=== PATIENT | female | born 1980 | race Caucasian/White ===

== ENCOUNTER → 2023-03-21 | Outpatient (CLI) | payer OTHER, SELFPAY ==
--- OUTSIDE RECORDS SUMMARY | 2023-03-21 11:46 | XMS RPT_ITS | CCD ---
Author Name Unknown Address [address] [place] [address] Organization [facility] Care Team Providers Care Safe And Vault Service Mechanic Name Role Phone Diana Mcdonald APRN.CNP Primary Care Provider Case LORENZO, Mary Underwood Unavailable Santos AREVALO, Kemar Eduardo Unavailable Zenobia Hernández LPN Unavailable Unavailable Unavailable Unavailable Allergies Allergy Classification Reported Allergen(s) Allergy Type Date of Onset Reaction(s) Facility (6 sources) Adhesive agent Drug Allergy 02-02-2010 Rash [facility] Work Phone: (6 sources) buPROPion Drug Allergy 05-23-2006 Hives [facility] Work Phone: (6 sources) CONTACT [Other] Propensity to adverse reactions 11-19-2004 [facility] Medications Current Medications Medication Drug Class(es) Dates Sig (Normalized) Sig (Original) FLUoxetine 40 mg oral capsule (2 sources) Serotonin Reuptake Inhibitor Start: 03-14-2023 FLUoxetine 40 mg capsule ; 1 Capsule daily for 90 days Quantity: 90 {Capsule} Refills: 0 Ordered: 14-Mar-2023 BJ Willoughby Start: 14-Mar-2023 Completed/Discontinued Medications Medication Drug Class(es) Dates Sig (Normalized) Sig (Original) drospirenone / Ethinyl Estradiol (9 sources) Progestin, Estrogen Start: 11-29-2022 Drospirenone-Ethin yl Estradiol (LORYNA, 28,) 3-0.02 mg per tablet Take 1 tablet daily, do not take inactive week. Begin new pack every 3 weeks. 114 tablet 0 11/29/2022 Active Problems Active Problems Problem Classification Problem Date Documented Da te Episodic/Chronic Allergic reactions (2 sources) Contact dermatitis; Translations: [Unspecified contact dermatitis, unspecified cause] 10-05-2021 Episodic Anxiety disorders (10 sources) Anxiety state; Translations: [Generalized anxiety disorder] Onset: 11-19-2004 09-22-2008 Chronic Other screening for suspected conditions (not mental disorders or infectious disease) (3 sources) Patient encounter status; Translations: [Encounter for screening mammogram for malignant neoplasm of breast] Episodic Unclassified (1 source) deliveries 02-01-2021 Past or Other Problems Problem Classification Problem Date Documented Date Episodic/Chronic Residual codes; unclassified (6 sources) Family history of diabetes mellitus; Translations: [Family history of diabetes mellitus] Onset: 09-22-2008 09-22-2008 Episodic Residual codes; unclassified (6 sources) FH: Skin disease; Translations: [Family history of diseases of the skin and subcutaneous tissue] Onset: 09-22-2008 09-22-2008 Episodic Unclassified (1 source) Rash - The onset of the rash has been acute and has been occurring in a persistent pattern for 4 days. The course has been increasing. The rash is characterized as red, weeping, pustular and raised above the skin. The rash was first seen on exposed areas (left arm). It spread to the neck, the back, the upper extremity, the lower extremity and exposed areas. There has been associated itching, pain, drainage, erythema and edema. There has been associated itching, while there has been no chills, fatigue, fever or weight loss. Note for Rash : Started after patient was helping with yard work. She reports that she usually avoids working in the yard as she gets very bad reactions to poison chris. 10-05-2021 Results Test Name Value Interpretation Reference Range Facil ity Vital Signs Date Time Vital Sign Value Performing Clinician Shirley martinez 10-05-2021 13:36-0400 Body height 165.1 cm Zenobia Hernández LPN [employer] [facility], [employer] [facility], [employer]. 10-05-2021 13:36-0400 Body mass index (BMI) [Ratio] 26.79 kg/m2 Zenobia Hernández LPN [employer] [facility], [facility].; [employer] [facility], [facility]. 10-05-2021 13:36-0400 Body surface area Derived from formula 1.8 m2 Zenobia Hernández LPN [facility].; [facility]. 10-05-2021 13:36-0400 Body weight 73.03 kg Zenobia Hernández LPN [facility].; [employer] [facility]. 10-05-2021 13:36-0400 Diastolic blood pressure 77 mm[Hg] Zenobia Hernández LPN [facility].; [employer] [facility] Encounters Encounter Date Encounter Type Care Provider Facility Start: 11-29-2022 ambulatory Diana Mcdonald APRN.CNP Work Phone: Internal Medicine [facility] Start: 11-28-2022 Refill Alicja Loredo MD Work Phone: OB/Gynecology Procedures Date Procedure Procedure Detail Performing Clinician Start: 10-14-2021 CHRISTA SCREENING W JALEN Garcia MD Work Phone: Start: 10-14-2021 Mammography Screen Wst r Start: 12-21-2020 Adult depression scr eening assessment Alicja Loredo MD Work Phone: Start: 09-23-2020 Mammography Alicja Loredo MD Work Phone: Start: 03-12-2010 End: 03-12-2010 Section - 2 Mary Willoughby PA-C Work Phone: Plan of Treatment Date Care Activity Detail Author Start: 09-14-2025 HPV TESTING HPV TESTING [facility] Start: 09-14-2025 PAP TESTING PAP TESTING [facility] Start: 03-16-2023 Medical; RTN OFFICE VISIT - rtn med refill Medical; RTN OFFICE VISIT - rtn med refill [facility] Start: 16-Mar-2023 15:00 BJ Willoughby Appointment Request Raymond [employer] [facility] Start: 11-10-2022 Influenza [facility] Start: 10-14-2022 Mammography [facility] Start: 03-12-2022 Depression Assessment Depression Assessment [facility] Start: 12-21-2021 Adult depression screening assessment DEPRESSION SCREENING [facility] Start: 11-10-2021 Influenza vaccination INFLUENZA (#1) [facility] Start: 09-23-2021 Mammography MAMMOGRAM [facility] Start: 04-07-2021 Urine microalbumin profile [facility] Start: 01-17-1996 HEPATITIS C SCREENING HEPATITIS C SCREENING [facility] Start: 01-17-1996 HIV SCREENING HIV SCREENING [facility] Start: 1980 COVID-19 VACCINE (#1) COVID-19 VACCINE (#1) [facility] Start: 1980 HEPATITIS B (1 of 3 - 3-dose series) HEPATITIS B (1 of 3 - 3-dose series) [facility] Start: 1980 Hepatitis B Vaccine (1 of 3 - 3-dose series) Hepatitis B Vaccine (1 of 3 - 3-dose series) [facility] End: 10-15-2022 CHRISTA SCREENING W JALEN CHRISTA SCREENING W JALEN Radiology Routine Encounter for screening mammogram for breast cancer 1 Occurrences starting 09/15/2021 until 10/15/2022 [facility] Work Phone: Immunizations Immunization Date Immunization Notes Care Provider Nik dickey 09-18-2013 measles, mumps and rubella virus vaccine Alicja Loredo MD Work Phone: [facility] Work Phone: 11-08-2011 hepatitis B vaccine, pediatric or pediatric/adolescent dosage Ailcja Loredo MD Work Phone: [facility] Work Phone: 11-08-2011 hepatitis B vaccine, unspecified formulation Mammography Coordinator [facility] 05-10-2011 hepatitis B vaccine, pediatric or pediatric/adolescent dosage Alicja Loredo MD Work Phone: [facility] Work Phone: 04-07-2011 hepatitis B vaccine, pediatric or pediatric/adolescent dosage Alicja Loredo MD Work Phone: [facility] Work Phone: 04-07-2011 meningococcal polysaccharide vaccine (MPSV4) Alicja Loredo MD Work Phone: [facility] Work Phone: 04-07-2011 tetanus toxoid, redu delia diphtheria toxoid, and acellular pertussis vaccine, adsorbed Alicja Loredo MD Work Phone: [facility] Work Phone: 04-10-1986 DTP-Haemophilus influenzae type b conjugate vaccine Alicja Loredo MD Work Phone: [facility] Work Phone: 10-11-1983 DTP-Haemophilus influenzae type b conjugate vaccine Alicja Loredo MD Work Phone: [facility] Work Phone: 10-11-1983 poliovirus vaccine, inactivated Alicja Loredo MD Work Phone: [facility] Work Phone: 04-10-1980 poliovirus vaccine, inactivated Alicja Loredo MD Work Phone: [facility] Work Phone: 10-07-1979 measles, mumps and rubella virus vaccine Alicja Loredo MD Work Phone: [facility] Work Phone: 1980 DTP-Haemophilus influenzae type b conjugate vaccine Alicja Loredo MD Work Phone: [facility] Work Phone: 1980 poliovirus vaccine, inactivated Alicja Loredo MD Work Phone: [facility] Work Phone: 1978 DTP-Haemophilus influenzae type b conjugate vaccine Alicja Loredo MD Work Phone: [facility] Work Phone: 1978 poliovirus vaccine, inactivated Alicja Loredo MD Work Phone: [facility] Work Phone: 1980 DTP-Haemophilus influenzae type b conjugate vaccine Alicja Loredo MD Work Phone: [facility] Work Phone: Payers Date Payer Category Payer Unknown MMO MMO [employer] [id number] 2020-Present [phone] [address] [place] [address] PPO [id number] 2020 Unknown 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 Start: 09-14-2020 End: 09-15-2021 Tobacco use panel [facility] National Score (1-100), lower number is lower risk Not on file [facility] Female [facility] [employer] Work Phone: Tobacco smoking consumption unknown [employer] Work Phone: Clinical Notes 09-15-2010 to 11-29-2022 Telephone Encounter - Tova White CHRISTINE - 11/28/2022 10:49 AM Johnathon - Mammography Coordinator - 10/14/2021 10:41 AM RT Josie(Davi) - 10/14/2021 8:30 AM EDT Note Date & Type Note Facility 11-29-2022 Note Patient Outreach (IN [facility]) RORY DRISCOLL ([id number]) 1980 F Date Time Provider Department 11/29/22 DIANA MCDONALD During your visit today, we recorded the following information about you: Allergies As of Date: 11/29/2022 Noted Allergy Reaction ADHESIVE 02/02/2010 2 - Rash Comments: TAPE BURN AFTER C SECTION CONTACT [Other] 11/19/2004 Comments: dizziness and fainting-states is an OTC flu pill WELLBUTRIN (BUPROPION HCL) 05/23/2006 4 - Hives Date Reviewed: 09/15/2021 Reviewed by: Janki Almeida MA - Fully Assessed Visit Diagnosis:Encounter for screening mammogram for breast cancer [Z12.31] Order(s):[facility] SCREENING W JALEN [[id number]] Order #: [id number] FUTURE Prescriptions as of 12/04/2022 - Drospirenone-Ethinyl Estradiol (LORYNA, 28,) 3-0.02 mg per tablet Take 1 tablet daily, do not take inactive week. Begin new pack every 3 weeks. - ergocalciferol 50,000 unit capsule (VITAMIN D2, DRISDOL) Take 1 capsule by mouth one time a week. Meds Comments as of 02/14/2008: All medications have been reviewed today/May 30, 2007/Haylee Suarez Cma Ca All medications reviewed today/February 14, 2008 Yue Reyes Rn Problem List As Of Date 11/29/2022 Noted Resolved ANXIETY STATE NOS [F41.1] 11/19/2004 IRRITABLE COLON [K58.9] 11/19/2004 09/22/2008 Supervision of Other Normal [Z34.80] 03/26/2008 11/13/2008 FAMILY HX DIABETES MELLITUS [Z83.3] 09/22/2008 FAMILY HX SKIN CONDITION [Z84.0] 09/22/2008 Routine General Medical Examination at [facility]*09/22/2008 11/13/2008 Class: Chronic Routine Gynecological Examination [Z01.419] 09/22/2008 11/13/2008 Class: Chronic Supervision of other normal [Z34.80] 09/15/2010 11/07/2010 Previous delivery, antepartum conditio*09/15/2010 11/07/2010 Encounter Status:Closed by JEANNE JUAREZ on 12/04/22 [facility] 11-28-2022 Miscellaneous Notes Pt called the office and stated that her insurance has changed and we are no longer covered under her new plan and she is having to switch to a new provider. Pt is not able to get into the new provider for a about a month and does not want to run out of her control. She is wanting to know if you would be willing to call in refills to last until she can be seen in the office. Pt wanted you to know that she is very upset that she has to leave the practice. Please advise on pended order below. Tova White LPN documented in this encounter [facility] 10-14-2021 Miscellaneous Notes October 14, 2021 PID: [id number] Rory Driscoll [address] [place] [address] Dear Ms. Driscoll, We are pleased to inform you that the results of your recent breast imaging exam on 10/14/2021 are normal. Your mammogram demonstrates that you have dense breast tissue, which could hide abnormalities. Dense breast tissue, in and of itself, is a relatively common condition. Therefore, this information is not provided to cause undue concern; rather, it is to raise your awareness and promote discussion with your health care provider regarding the presence of dense breast tissue in addition to other risk factors. Early detection of cancer is very important. We also understand recommendations regarding breast cancer screening are controversial. Please discuss with your primary care provider which strategy is best for you and whether a mammogram is right for you. Your imaging studies and report will be kept on file at [facility] as part of your permanent medical record and are available for your continuing care. Thank you for allowing us to help in meeting your health care needs. Sincerely, Dr. Wiggins Interpreting Radiologist [facility] (Normal over 40) documented in this encounter [facility] 10-14-2021 History of Presen t illness Narrative Radiology Service Progress Note PATIENT NAME: Rory Driscoll DATE OF SERVICE: October 14, 2021 TIME: 8:23 AM PATIENT IDENTITY VERIFICATION COMPLETED USING TWO (2) IDENTIFIERS: Name and Date of confirmed by patient verbally. FALL SCREENING: Has the patient had 2 falls in the last year or 1 fall with injury or currently using an Ambulatory Assistive Device (Walker, Cane, Wheelchair, Crutches, etc.)? No PATIENT GENDER DATA: Female. status: : No status: NO. PATIENT RELEVANT IMPLANT DATA REVIEWED: Not Applicable RADIOLOGY DEPARTMENT: Mammography PERIPHERAL IV DATA: Not applicable SIGNED BY: RT Schuyler(R) October 14, 2021 8:23 AM documented in this encounter [facility] 09-16-2021 Miscellaneous Notes Patient notified. Lana Harman RN Left message for patient to call office. Jaqueline Nam RN ----- Message from Alicja Loredo MD sent at 09/16/2021 9:55 AM EDT ----- Notify patient that Vit D level is normal range. I do not recommend the 50,000iu/day. Would recommend just OTC 1000 international unit(s)/day or every other day. documented in this encounter [facility] 09-15-2021 History of Presen t illness Narrative Rory is a 41 year old who presents for an annual gynecologic exam without complaints. seperated from - very happy. Has three children and expecting first grandchild this year. Youngest is 11. very happy with OCPs Menses: no menses - continuous OCPs. Contraception: combined hormonal contraceptives HPV vaccine: No Last Pap: 09/17/2020 normal HPV: 09/16/2020 negative History of abnormal pap: No Last mammogram: 2020normal Sexually active: Not currently History of STDS: None Patient concerns for STD exposure: No. Exercise: active Diet: balanced OB History T3 L3 SAB0 IAB0 Ectopic0 Multiple0 Live Births3 Athletics Director History LMP: 08/29/2020, Having periods Age at Menarche: Age at First : Age at Menopause: Athletics Director History Comments: Sexual Activity: Yes; Male Contraception: Vasectomy PAST MEDICAL HISTORY Diagnosis Date Generalized anxiety disorder Anxiety, Generalized/DEPRESSION Headache(784.0) PAST SURGICAL HISTORY Procedure Laterality Date DELIVERY ONLY 10/01/2008 , low transverse TONSILLECTOMY PRIMARY/SECONDARY <AGE 12 Tonsillectomy FAMILY HISTORY Problem Relation Age of Onset Arthritis Mother Cancer Mother SKIN CANCER (basal cell) Hypertension Father Cancer Father SKIN CANCER Diabetes Father Anxiety disorder Father Anxiety disorder Sister Cancer Sister SKIN CANCER Anxiety disorder Sister Cancer Brother SKIN CANCER other (PARKINSONS DISEASE) Maternal Grandmother Diabetes Maternal Grandfather Stroke Paternal Grandmother Coronary Artery Disease Paternal Grandfather Ischemic Heart Disease Paternal Grandfather age 60's No Known Problems Daughter No Known Problems Daughter No Known Problems Daughter Colon Cancer Other Breast Cancer Other SOCIAL HISTORY Social History Tobacco Use Smoking status: Never Smoker Smokeless tobacco: Never Used Vaping Use Vaping Use: Never used Substance Use Topics Alcohol use: No Drug use: No REVIEW OF SYSTEMS Abdomen: No abdominal pain, nausea, vomiting, diarrhea, or constipation. No bloating, early satiety, indigestion, or increased flatulence. Bladder: No dysuria, gross hematuria, urinary frequency, urinary urgency, or incontinence. Breast: No breast lumps, nipple d/c, overlying skin changes, redness or skin retraction. Allergies and current medication updated:Yes EXAM: BP 110/78 Wt 160 lb (72.6kg) LMP 08/29/2020 GENERAL: pleasant, female in no apparent distress HEENT: Normocephalic, atraumatic, mucus membranes moist and no lesions NECK: Supple, full range of motion, no adenopathy and thyroid normal DERMATOLOGY: Normal, without lesions, non-icteric and non-hirsute BREAST: soft, non-tender, symmetric, no dominant mass, normal nipple-areolar complex, no lymphadenopathy and no nipple discharge ABDOMEN: soft, non-tender and no masses PELVIC: external genitalia normal, normal Bartholin's glands, urethra, Nemaha's glands, no vulvar lesions, no cervical lesions, good vaginal support, physiologic discharge present, normal appearing perineal body and perianal region BIMANUAL: uterus 12 Week size, shape and consistency, no adnexal masses and non-tender RECTOVAGINAL: deferred. NEURO: alert and oriented x3,exam grossly non-focal EXTREMITIES: normal ASSESSMENT/PLAN: 1) Health maintenance: Pap/HPV up to date. Mammogram ordered. Vit D level today Nutrition, exercise and routine health maintenance exams reviewed. Calcium/Vitamin D supplementation information provided. 2) Contraception: combined hormonal contraceptives. Contraceptive options reviewed and information provided. 3) STD screening: Declined STD check. 4) Follow up one year or sooner as needed Alicja Christiansen MD documented in this encounter [facility] documented as of this encounter (statuses as of 09/15/2021) [facility] History of Past illness Narrative* Problem Noted Date Resolved Date Supervision of other normal 09/15/2010 11/07/2010 Previous delivery, antepartum condition or complication 09/15/2010 11/07/2010 Routine general medical exam ination at a health care facility 09/22/2008 11/13/2008 Overview: 09/22/2008, vaibhav care, from Dr. Garcia Routine gynecological examination 09/22/2008 11/13/2008 Overview: Dr. Brannon Supervision of other normal 03/26/2008 11/13/2008 Irritable bowel syndrome 11/19/2004 009 documented as of this encounter (statuses as of 09/16/2021) [facility] History of Past illness Narrative* Problem Noted Date Resolved Date Supervision of other normal 09/15/2010 11/07/2010 Previous delivery, antepartum condition or complication 09/15/2010 11/07/2010 Routine general medical exam ination at a health care facility 09/22/2008 11/13/2008 Overview: 09/22/2008vaibhav care, from Dr. Garcia Routine gynecological examination 09/22/2008 11/13/2008 Overview: Dr. Brannon Supervision of other normal 03/26/2008 11/13/2008 Irritable bowel syndrome 11/19/2004 009 documented as of this encounter (statuses as of 10/15/2021) [facility] History of Past illness Narrative* Problem Noted Date Resolved Date Supervision of other normal 09/15/2010 11/07/2010 Previous delivery, antepartum condition or complication 09/15/2010 11/07/2010 Routine general medical exam ination at a health care facility 09/22/2008 11/13/2008 Overview: 09/22/2008, vaibhav care, from Dr. Garcia Routine gynecological examination 09/22/2008 11/13/2008 Overview: Dr. Brannon Supervision of other normal 03/26/2008 11/13/2008 Irritable bowel syndrome 11/19/2004 009 documented as of this encounter (statuses as of 10/18/2021) [facility] History of Past illness Narrative* Problem Noted Date Diagnosed Date Resolved Date Supervision of other normal 09/15/2010 11/07/2010 Previous delivery, antepartum condition or complication 09/15/2010 11/07/2010 Routine general medical exam ination at a health care facility 09/22/2008 11/13/2008 Overview: 09/22/2008vaibhav care, from Dr. Garcia Routine gynecological examination 09/22/2008 11/13/2008 Overview: Dr. Brannon Supervision of other normal 03/26/2008 11/13/2008 Irritable bowel syndrome 11/19/2004 documented as of this encounter (statuses as of 11/29/2022) [facility] History of Past illness Narrative* Problem Noted Date Diagnosed Date Resolved Date Supervision of other normal 09/15/2010 11/07/2010 Previous delivery, antepartum condition or complication 09/15/2010 11/07/2010 Routine general medical exam ination at a health care facility 09/22/2008 11/13/2008 Overview: 09/22/2008, vaibhav care, from Dr. Garcia Routine gynecological examination 09/22/2008 11/13/2008 Overview: Dr. Brannon Supervision of other normal 03/26/2008 11/13/2008 Irritable bowel syndrome 11/19/2004 documented as of this encounter (statuses as of 12/04/2022) [facility] note* Diagnosis Encounter for gynecological examination (general) (routine) without abnormal findings- Primary Encounter for screening mammogram for breast cancer [facility] Diagnosis Encounter for screening mammogram for breast cancer [facility] Diagnosis Encounter for screening mammogram for breast cancer documented in this encounter [facility] for referral (narrative)* Diagnostic Procedure Only (Routine) - Pending Review Specialty Diagnoses / Procedures Referred By Rob t Referred To Contact [facility] Diagnoses Encounter for screening mammogram for breast cancer Procedures CHRISTA SCREENING W JALEN SCREENING DIGITAL BREAST TOMOSYNTHESIS BI SCREENING MAMMOGRAPHY BI 2-VIEW BREAST INC Alicja Andujar MD [address] [place] [address] [facility] [address] [place] [address] Referral ID Status Reason Start Date Expiration Date Visits Requested Visits Authorized [id number] Pending Review Auto-Generat ed Referral 09/15/2021 10/15/2022 1 1 T [facility] for referral (narrative)* Diagnostic Procedure Only (Routine) - Closed Specialty Diagnoses / Procedures Referred By Contac t Referred To Contact [facility] Diagnoses Encounter for screening mammogram for breast cancer Procedures CHRISTA SCREENING W JALEN SCREENING DIGITAL BREAST TOMOSYNTHESIS BI SCREENING MAMMOGRAPHY BI 2-VIEW BREAST INC CAD Alicja Mcbride MD [address] [place] [address] [facility] [address] [place] [address] Referral ID Status Reason Start Date Expiration Date V isits Requested Visits Authorized [id number] Closed Auto-Generate d Referral 09/15/2021 10/15/2022 1 1 [facility] for visit Narrative* Diagnostic Procedure Only (Routine) - Closed Specialty Diagnoses / Procedures Referred By Rob t Referred To Contact [facility] Diagnoses Encounter for screening mammogram for breast cancer Procedures CHRISTA SCREENING W JALEN SCREENING DIGITAL BREAST TOMOSYNTHESIS BI SCREENING MAMMOGRAPHY BI 2-VIEW BREAST INC CAD Alicja Mcbride MD [address] [place] [address] [facility] Imaging [address] [place] [address] Referral ID Status Reason Start Date Expiration Date V isits Requested Visits Authorized [id number] Closed Auto-Generate d Referral 09/15/2021 10/15/2022 1 1 [facility] Reason for Referral Specialty Diagnoses / Procedures Referred By Contfranky t Referred To Contact [facility] Diagnoses Encounter for screening mammogram for breast cancer Procedures CHRISTA SCREENING W JALEN SCREENING DIGITAL BREAST TOMOSYNTHESIS BI SCREENING MAMMOGRAPHY BI 2-VIEW BREAST INC CAD Diana Mcdonald, CUSTOMER SUPPORT ASSOCIATE.LENS BLOCKER [address] [place] [address] [facility] Imaging [address] [place] [address] Referral ID Status Reason Start Date Expiration Date Visits Requested Visits Authorized [id number] Closed Auto-Generated Referral Financial Clearance Required - OON Payor OON Notification Letter Clearance not met - patient not scheduled & unable to contact patient 11/29/2022 12/29/2023 1 0 Summary Purpose Family History No Family History Records Found Advance Directives No Advanced Directives Records Found Additional Source Comments Source Comments (unrecognize d section and content) In the event this informatio n is protected by the Federal Confidentiality of Alcohol and Drug Abuse Patient Records regulations: The Federal rules restrict any use of the information to criminally investigate or prosecute any alcohol or drug abuse patient.[facility] the event this information is protected by the Federal Confidentiality of Alcohol and Drug Abuse Patient Records regulations: The Federal rules restrict any use of the information to criminally investigate or prosecute any alcohol or drug abuse patient.[facility] the event this information is protected by the Federal Confidentiality of Alcohol and Drug Abuse Patient Records regulations: The Federal rules restrict any use of the information to criminally investigate or prosecute any alcohol or drug abuse patient.[facility] the event this information is protected by the Federal Confidentiality of Alcohol and Drug Abuse Patient Records regulations: The Federal rules restrict any use of the information to criminally investigate or prosecute any alcohol or drug abuse patient.[facility] the event this information is protected by the Federal Confidentiality of Alcohol and Drug Abuse Patient Records regulations: The Federal rules restrict any use of the information to criminally investigate or prosecute any alcohol or drug abuse patient.[facility] the event this information is protected by the Federal Confidentiality of Alcohol and Drug Abuse Patient Records regulations: The Federal rules restrict any use of the information to criminally investigate or prosecute any alcohol or drug abuse patient.[facility] Reason for Visit (unrecogniz ed section and content) Reason Comments Results Reason Onset Date Comments Refill Request 11/28/2022 Care Teams (unrecognized sec tion and content) [employer] Service Mechanic Relationship Specialty Start Date End Date Diana Mcdonald, CUSTOMER SUPPORT ASSOCIATE.LENS BLOCKER [address] [place] [address] PCP - General Family Practice 12/21/20 [employer] Service Mechanic Relationship Specialty Start Date End Date Diana Mcdonald, CUSTOMER SUPPORT ASSOCIATE.LENS BLOCKER [address] [place] [address] PCP - General Family Practice 12/21/20 [employer] Service Mechanic Relationship Specialty Start Date End Date Diana Mcdonald, CUSTOMER SUPPORT ASSOCIATE.LENS BLOCKER [address] [place] [address] PCP - General Family Practice 12/21/20 [employer] Service Mechanic Relationship Specialty Start Date End Date Diana Mcdonald, CUSTOMER SUPPORT ASSOCIATE.LENS BLOCKER [address] [facility], [place] [address] PCP - General Family Medicine 12/21/20 [employer] Service Mechanic Relationship Specialty Start Date End Date Diana Mcdonald, CUSTOMER SUPPORT ASSOCIATE.LENS BLOCKER [address] [facility], [place] [address] PCP - General Family Medicine 12/21/20 INFORMATION SOURCE (unrecogn ized section and content) FOR RECORDS PERTAINING TO PATIENTS WHO ARE OR HAVE BEEN ENROLLED IN A CHEMICAL DEPENDENCY/SUBSTANCEABUSE PROGRAM, SOME INFORMATION MAY BE OMITTED. This clinical summary was aggregated from multiple sources. Caution should be exercised in using it in the provision of clinical care. This summary normalizes information from multiple sources, and as a consequence, information in this document may materially change the coding, format and clinical context of patient data. In addition, data may be omitted in some cases. CLINICAL DECISIONS SHOULD BE BASED ON THE PRIMARY CLINICAL RECORDS. [employer] provides no warranty or guarantee of the accuracy or completeness of information in this document.
[2023-03-23 06:09] LABS: Chlamydia By Nucleic Acid AMP Negative (Negative); Gonococcus By Nucleic Acid AMP Negative (Negative)
== END | disposition home or self-care (01) ==
LOC: LABSPEC 11:21
PROVIDERS: Referring Provider Nurse Practitioner Women's Health; Visit Provider Nurse Practitioner Women's Health
DX: Z11.3 Encounter for screening for infections with a predominantly sexual mode of transmission (principal)
CPT/HCPCS: 87491; 87591

== ENCOUNTER 2023-04-12 07:57 | Outpatient (CLI) | payer OTHER, SELFPAY ==
--- NOTE | 2023-04-12 07:58 | BI_ITS ---
MAMMOGRAPHY - BILATERAL SCREENING REASON FOR EXAM: Female, 43 years old. Routine annual screening examination. PERTINENT HISTORY: Aunt with breast cancer. TECHNIQUE: Digital bilateral breast jalen (3D mammographic acquisition) in the CC and MLO projections. 2-D mediolateral oblique (MLO) and craniocaudad (CC) views of both breasts were obtained. CAD: Full Field Digital Mammography with Computer Added Detection was performed. COMPARISON: Comparison is made with prior outside examination October 14, 2021. FINDINGS: Breast Composition: There are scattered areas of fibroglandular density. There are no dominant masses or suspicious calcifications. No other significant abnormalities are identified. There has been no significant change since the prior study. BI/SCRN MAMM (CAD)W/JALEN BILAT IMPRESSION: Stable bilateral screening mammogram. Yearly follow-up mammogram recommended. (A) ASSESSMENT CATEGORY: BIRADS Category 1: Negative. A letter regarding these results will be sent to the patient by the facility within 30 days. Approximately 10% of breast cancers are not detected by mammography. A normal mammogram should not delay biopsy of a clinically suspicious abnormality. [id number] Electronically Signed: Dante Cadet MD at 10:41 EST ,
--- OUTSIDE RECORDS SUMMARY | 2023-04-12 08:27 | XMS RPT_ITS | CCD ---
Author Name Unknown Address [address] [place] [address] Organization [facility] Care Team Providers [facility] Name Role Phone Diana Mcdonald APRN.CNP Primary Care Provider Case LORENZO, Mary Underwood Unavailable Santos AREVALO, Kemar Eduardo Unavailable Zenobia Hernández LPN Unavailable Unavailable Unavailable Unavailable Allergies Allergy Classification Reported Allergen(s) Allergy Type Date of Onset Reaction(s) Facility (6 sources) Adhesive agent Drug Allergy 02-02-2010 Rash [facility] Work Phone: (6 sources) buPROPion Drug Allergy 05-23-2006 Hives [facility] Work Phone: (6 sources) CONTACT [Other] Propensity to adverse reactions 11-19-2004 [facility] Medications Current Medications Medication Drug Class(es) Dates [...] Body height 165.1 cm Zenobia Hernández LPN [employer] [facility], [employer] [facility], [employer]. 10-05-2021 13:36-0400 Body mass index (BMI) [Ratio] 26.79 kg/m2 Zenobia Hernández LPN [employer] [facility], [facility].; [employer] [facility], [facility]. 10-05-2021 13:36-0400 Body surface area Derived from formula 1.8 m2 Zenobia Hernánedz LPN [facility].; [facility]. 10-05-2021 13:36-0400 Body weight 73.03 kg Zenobia Hernández LPN [facility].; [employer] [facility]. 10-05-2021 13:36-0400 Diastolic blood pressure 77 mm[Hg] Zenobia Hernández LPN [facility].; [facility] [facility]. Encounters Encounter Date Encounter Type Care Provider Facility Start: 11-29-2022 ambulatory Diana Mcdonald APRN.CNP Work Phone: Internal Medicine [facility] Start: 11-28-2022 Refill Alicja Loredo MD Work [...] Author Start: 09-14-2025 HPV TESTING HPV TESTING [facility] Start: 09-14-2025 PAP TESTING PAP TESTING [facility] Start: 03-16-2023 Medical; RTN OFFICE VISIT - rtn med refill Medical; RTN OFFICE VISIT - rtn med refill [facility] Start: 16-Mar-2023 15:00 BJ Willough[place] Appointment Request [place] [employer] [facility] Start: 11-10-2022 Influenza vaccination [facility] Start: 10-14-2022 Mammography [facility] Start: 03-12-2022 Depression Assessment Depression Assessment [facility] Start: 12-21-2021 Adult depression screening assessment DEPRESSION SCREENING [facility] Start: 11-10-2021 Influenza vaccination INFLUENZA (#1) [facility] Start: 09-23-2021 Mammography MAMMOGRAM [facility] Start: 04-07-2021 Urine microalbumin profile [facility] Start: 01-17-1996 HEPATITIS C SCREENING HEPATITIS C SCREENING [facility] Start: 01-17-1996 HIV SCREENING HIV SCREENING [facility] Start: 1980 COVID-19 VACCINE (#1) COVID-19 VACCINE (#1) [facility] Start: 1980 HEPATITIS B (1 of 3 - 3-dose series) HEPATITIS B (1 of 3 - 3-dose series) [facility] Start: 1980 Hepatitis B Vaccine (1 of 3 - 3-dose series) Hepatitis B Vaccine (1 of 3 - 3-dose series) [facility] End: 10-15-2022 CHRISTA SCREENING W JALEN CHRISTA SCREENING W JALEN Radiology Routine Encounter for screening mammogram for breast cancer 1 Occurrences starting 09/15/2021 until 10/15/2022 [facility] Work Phone: Immunizations Immunization Date Immunization Notes Care Provider Nik dickey 09-18-2013 measles, mumps and rubella virus vaccine Alicja Loredo MD Work Phone: [facility] Work Phone: 11-08-2011 hepatitis B vaccine, pediatric or pediatric/adolescent dosage Alicja Loredo MD Work Phone: [facility] Work Phone: 11-08-2011 hepatitis B vaccine, unspecified formulation Mammography Coordinator [facility] 05-10-2011 hepatitis B vaccine, pediatric or pediatric/adolescent dosage Alicja Loredo MD Work Phone: [facility] Work Phone: 04-07-2011 hepatitis B vaccine, pediatric or pediatric/adolescent dosage Alicja Loredo MD Work Phone: [facility] Work Phone: 04-07-2011 meningococcal polysaccharide vaccine (MPSV4) Alicja Loredo MD Work Phone: [facility] Work Phone: 04-07-2011 tetanus toxoid, redu delia diphtheria toxoid, and acellular pertussis vaccine, adsorbed Alicja Loredo MD Work Phone: [facility] Work Phone: 04-10-1986 DTP-Haemophilus influenzae type b conjugate vaccine Alicja Loredo MD Work Phone: [facility] Work Phone: 10-11-1983 DTP-Haemophilus influenzae type b conjugate vaccine Alicja Loredo MD Work Phone: [facility] Work Phone: 10-11-1983 poliovirus vaccine, inactivated Alicja Loredo MD Work Phone: [facility] Work Phone: 04-10-1980 poliovirus vaccine, inactivated Alicja Loredo MD Work Phone: [facility] Work Phone: 10-07-1979 measles, mumps and rubella virus vaccine Alicja Loredo MD Work Phone: [facility] Work Phone: 1978 DTP-Haemophilus influenzae type b conjugate vaccine Alicja Loredo MD Work Phone: [facility] Work Phone: 1978 poliovirus vaccine, inactivated Alicja Loredo MD Work Phone: [facility] Work Phone: 1978 DTP-Haemophilus influenzae type b conjugate vaccine Alicja Loredo MD Work Phone: [facility] Work Phone: 1978 poliovirus vaccine, inactivated Alicja Loredo MD Work Phone: [facility] Work Phone: 1978 DTP-Haemophilus influenzae type b conjugate vaccine Alicja Loredo MD Work Phone: [facility] Work Phone: Payers Date Payer Category Payer Unknown MMO MMO [employer] [id number] 2020-Present [phone] [address] [place] [address] PPO [id number] 2020 Unknown 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.; [employer] Start: 09-14-2020 End: 09-15-2021 Tobacco use panel [facility] National Score (1-100), lower number is lower risk Not on file [facility] Female [facility]; [employer] Work Phone: Tobacco smoking consumption unknown [employer] Work Phone: Clinical Notes 09-15-2010 to 11-29-2022 Telephone Encounter - Tova White CHRISTINE - 11/28/2022 10:49 AM Johnathon - Mammography Coordinator - 10/14/2021 10:41 AM RT Josie(Davi) - 10/14/2021 8:30 AM EDT Note Date & Type Note Facility 11-29-2022 Note Patient Outreach (IN [facility]) RORY DRISCOLL ([id number]) 1980 F Date Time Provider Department 11/29/22 [...] for screening mammogram for breast cancer [Z12.31] Order(s):[facility] SCREENING W JALEN [[id number]] Order #: [id number] FUTURE Prescriptions as of 12/04/2022 - Drospirenone-Ethinyl [...] [Z84.0] 09/22/2008 Routine General Medical Examination at [facility]*09/22/2008 11/13/2008 Class: Chronic Routine Gynecological Examination [Z01.419] 09/22/2008 11/13/2008 Class: Chronic Supervision of other normal [Z34.80] 09/15/2010 11/07/2010 Previous delivery, antepartum conditio*09/15/2010 11/07/2010 Encounter Status:Closed by JEANNE JUAREZ on 12/04/22 [facility] 11-28-2022 Miscellaneous Notes Pt called the office [...] Tova White LPN documented in this encounter [facility] 10-14-2021 Miscellaneous Notes October 14, 2021 PID: [id number] Rory Driscoll [address] [place] [address] Dear Ms. Driscoll, We are pleased to [...] report will be kept on file at [facility] as part of your permanent medical record and are available for your continuing care. Thank you for allowing us to help in meeting your health care needs. Sincerely, Dr. Wiggins Interpreting Radiologist [facility] (Normal over 40) documented in this encounter [facility] 10-14-2021 History of Presen t illness Narrative [...] 2021 8:23 AM documented in this encounter [facility] 09-16-2021 Miscellaneous Notes Patient notified. Lana Harman RN Left message for patient to call office. Jaqueline Nam RN ----- Message from Alicja Loredo MD sent at 09/16/2021 9:55 AM EDT ----- Notify patient that Vit D level is normal range. I do not recommend the 50,000iu/day. Would recommend just OTC 1000 international unit(s)/day or every other day. documented in this encounter [facility] 09-15-2021 History of Presen t illness Narrative Royr is a 41 year old who presents [...] L3 SAB0 IAB0 Ectopic0 Multiple0 Live Births3 Medical Reimbursement Manager History LMP: 08/29/2020, Having periods Age at Menarche: Age at First : Age at Menopause: Medical Reimbursement Manager History Comments: Sexual Activity: Yes; Male Contraception: [...] external genitalia normal, normal Bartholin's glands, urethra, [place]'s glands, no vulvar lesions, no cervical lesions, [...] Alicja Christiansen MD documented in this encounter [facility] documented as of this encounter (statuses as of 09/15/2021) [facility]07-[facility]2011 History of Past illness Narrative* Problem Noted [...] of this encounter (statuses as of 09/16/2021) [facility] History of Past illness Narrative* Problem Noted [...] of this encounter (statuses as of 10/15/2021) [facility] History of Past illness Narrative* Problem Noted [...] of this encounter (statuses as of 10/18/2021) [facility] History of Past illness Narrative* Problem Noted [...] of this encounter (statuses as of 11/29/2022) [facility] History of Past illness Narrative* Problem Noted [...] of this encounter (statuses as of 12/04/2022) [facility] note* Diagnosis Encounter for gynecological examination (general) (routine) without abnormal findings- Primary Encounter for screening mammogram for breast cancer [facility] Diagnosis Encounter for screening mammogram for breast cancer [facility] Diagnosis Encounter for screening mammogram for breast cancer documented in this encounter [facility] for referral (narrative)* Diagnostic Procedure Only (Routine) - Pending Review Specialty Diagnoses / Procedures Referred By Rob t Referred To Contact [facility] Diagnoses Encounter for screening mammogram for breast cancer Procedures CHRISTA SCREENING W JALEN SCREENING DIGITAL BREAST TOMOSYNTHESIS BI SCREENING MAMMOGRAPHY BI 2-VIEW BREAST INC Alicja Andujar MD [address] [place] [address] [facility] [address] [place] [address] Referral ID Status Reason Start Date Expiration Date Visits Requested Visits Authorized [id number] Pending Review Auto-Generat ed Referral 09/15/2021 10/15/2022 1 1 T [facility] for referral (narrative)* Diagnostic Procedure Only (Routine) - Closed Specialty Diagnoses / Procedures Referred By Contac t Referred To Contact [facility] Diagnoses Encounter for screening mammogram for breast cancer Procedures CHRISTA SCREENING W JALEN SCREENING DIGITAL BREAST TOMOSYNTHESIS BI SCREENING MAMMOGRAPHY BI 2-VIEW BREAST INC CAD Alicja Mcbride MD [address] [place] [address] [facility] [address] [place] [address] Referral ID Status Reason Start Date Expiration Date V isits Requested Visits Authorized [id number] Closed Auto-Generate d Referral 09/15/2021 10/15/2022 1 1 T [facility] for visit Narrative* Diagnostic Procedure Only (Routine) - Closed Specialty Diagnoses / Procedures Referred By Rob t Referred To Contact [facility] Diagnoses Encounter for screening mammogram for breast cancer Procedures CHRISTA SCREENING W JALEN SCREENING DIGITAL BREAST TOMOSYNTHESIS BI SCREENING MAMMOGRAPHY BI 2-VIEW BREAST INC CAD Alicja Mcbride MD [address] [place] [address] [facility] [address] [place] [address] Referral ID Status Reason Start Date Expiration Date V isits Requested Visits Authorized [id number] Closed Auto-Generate d Referral 09/15/2021 10/15/2022 1 1 [facility] Reason for Referral Specialty Diagnoses / Procedures Referred By Contfranky t Referred To Contact [facility] Diagnoses Encounter for screening mammogram for breast cancer Procedures CHRISTA SCREENING W JALEN SCREENING DIGITAL BREAST TOMOSYNTHESIS BI SCREENING MAMMOGRAPHY BI 2-VIEW BREAST INC CAD Diana Mcdonald, FITNESS SALES ASSOCIATE.COAL AND ASH SUPERVISOR [address] [place] [address] [facility] [address] [place] [address] Referral ID Status Reason Start Date Expiration Date Visits Requested Visits Authorized [id number] Closed Auto-Generated Referral Financial Clearance Required - [...] or prosecute any alcohol or drug abuse patient.[facility] the event this information is protected by the Federal Confidentiality of Alcohol and Drug Abuse Patient Records regulations: The Federal rules restrict any use of the information to criminally investigate or prosecute any alcohol or drug abuse patient.[facility] the event this information is protected by the Federal Confidentiality of Alcohol and Drug Abuse Patient Records regulations: The Federal rules restrict any use of the information to criminally investigate or prosecute any alcohol or drug abuse patient.[facility] the event this information is protected by the Federal Confidentiality of Alcohol and Drug Abuse Patient Records regulations: The Federal rules restrict any use of the information to criminally investigate or prosecute any alcohol or drug abuse patient.[facility] the event this information is protected by the Federal Confidentiality of Alcohol and Drug Abuse Patient Records regulations: The Federal rules restrict any use of the information to criminally investigate or prosecute any alcohol or drug abuse patient.[facility] the event this information is protected by the Federal Confidentiality of Alcohol and Drug Abuse Patient Records regulations: The Federal rules restrict any use of the information to criminally investigate or prosecute any alcohol or drug abuse patient.[facility] Reason for Visit (unrecogniz ed section and content) Reason Comments Results Reason Onset Date Comments Refill Request 11/28/2022 Care Teams (unrecognized sec tion and content) [facility] Relationship Specialty Start Date End Date Diana Mcdonald, FITNESS SALES ASSOCIATE.COAL AND ASH SUPERVISOR [address] [facility] [place] [address] PCP - General Family Practice 12/21/20 [facility] Relationship Specialty Start Date End Date Diana Mcdonald, FITNESS SALES ASSOCIATE.COAL AND ASH SUPERVISOR [address] [facility] [place] [address] PCP - General Family Practice 12/21/20 [facility] Relationship Specialty Start Date End Date Diana Mcdonald, FITNESS SALES ASSOCIATE.COAL AND ASH SUPERVISOR [address] [facility] [place] [address] PCP - General Family Practice 12/21/20 [facility] Relationship Specialty Start Date End Date Diana Mcdonald, FITNESS SALES ASSOCIATE.COAL AND ASH SUPERVISOR [address] [facility], [place] [address] PCP - General Family Medicine 12/21/20 [facility] Relationship Specialty Start Date End Date Diana Mcdonald, FITNESS SALES ASSOCIATE.COAL AND ASH SUPERVISOR [address] [facility], [place] [address] PCP - General Family Medicine 12/21/20 INFORMATION [...] BE BASED ON THE PRIMARY CLINICAL RECORDS. [employer] provides no warranty or guarantee of the accuracy or completeness of information in this document.
[2023-04-12 08:29] LABS: Cholesterol 257 mg/dL (200); Glucose 99 mg/dL (74-106); High Density Lipoprotein 97 mg/dL; T4 Free Direct 0.87 ng/dL (0.76-1.46); Thyroid Stim Hormone (TSH) 1.07 uIU/mL (0.358-3.74); Triglycerides 94 mg/dL; Very Low Density Lipoprotein 19 mg/dL (5-40)
[2023-04-12 08:36] LABS: Vitamin D,25 Hydroxy 30.1 ng/mL
[2023-04-12 08:57] LABS: Hemoglobin A1c 5.1 % (3.8-5.6)
[2023-04-13 08:12] LABS: Thyroid Peroxidase AB 14 IU/mL (0-34)
== END 2023-04-12 23:59 | disposition home or self-care (01) ==
PROVIDERS: Referring Provider Nurse Practitioner Women's Health; Visit Provider Nurse Practitioner Women's Health
DX: Z12.31 Encounter for screening mammogram for malignant neoplasm of breast (principal); Z80.3 Family history of malignant neoplasm of breast; R53.83 Other fatigue; F41.9 Anxiety disorder, unspecified; Z13.21 Encounter for screening for nutritional disorder; Z13.220 Encounter for screening for lipoid disorders; Z13.1 Encounter for screening for diabetes mellitus
CPT/HCPCS: 36415; 77063; 77067; 80061; 82306; 82947; 83036; 84439; 84443; 86376

== ENCOUNTER → 2024-06-03 | Outpatient (CLI) | payer OTHER, SELFPAY ==
--- NOTE | 2024-06-03 14:15 | BI_ITS ---
EXAM: SCRN MAMM (CAD)W/JALEN BILAT 06/03/2024 CLINICAL HISTORY: F, Age 44 y/o , SCREENING MAMMOGRAM FOR BREAST CANCER BREAST CANCER RISK ASSESSMENT: Has not been calculated TECHNIQUE: Bilateral screening digital breast tomosynthesis with 2D images. Computer aided detection. COMPARISON: Prior exam(s) dated 04/12/2023. FINDINGS: TISSUE DENSITY: The breast tissue is composed of scattered area of fibroglandular density. Bilateral Breast Mammographic Findings: There are no other dominant masses, areas of architectural distortion, or suspicious calcifications in either breast. A stable 5 mm benign-appearing intramammary lymph node in the superior outer, far posterior aspect of the right breast is noted. BI/SCRN MAMM (CAD)W/JALEN BILAT IMPRESSION: Right Breast: BIRADS 2 BENIGN FINDING. Left Breast: BIRADS 2 BENIGN FINDING. OVERALL FINAL ASSESSMENT: BIRADS 2 BENIGN FINDING RECOMMENDATION: Routine annual follow-up in 1 Year A letter with findings and recommendations will be mailed to the patient. Reading Location: [id number]
== END | disposition home or self-care (01) ==
LOC: OPBI 13:58
PROVIDERS: Referring Provider Nurse Practitioner Women's Health; Visit Provider Nurse Practitioner Women's Health
DX: Z12.31 Encounter for screening mammogram for malignant neoplasm of breast (principal)
CPT/HCPCS: 77063; 77067

== ENCOUNTER → 2024-06-24 | Outpatient (CLI) | payer OTHER, SELFPAY ==
[2024-06-24 17:03] LABS: Absolute Lymphocyte Count 1.94 X10^3/uL (0.83-4.51); Absolute Neutrophil Count 2.6 X10^3/uL (2.0-7.7); Basophil# 0.07 X10^3/uL; Basophil% 1.3 % (0-1); Eosinophil# 0.15 X10^3/uL; Eosinophils% 2.9 % (0-5); Hemoglobin 12.9 g/dL (12.0-15.0); Lymphocyte # 1.94 X10^3/ul (0.83-4.51); Lymphocyte % 37.3 % (19-41); Mean Corp Hgb Conc 33.1 g/dL (32-36); Mean Corpuscular Hgb 29.5 pg (27.0-32.0); Mean Platelet Vol. 10.1 fl (6.2-12.0); Monocyte# 0.44 X10^3/uL; Monocyte% 8.5 % (0-10); NRBC Flagged by Analyzer 0 % (0-5); Neutrophil # 2.59 X10^3/uL (2.7-7.7); Neutrophil % 49.8 % (47-70); Platelet Count 304 K/mm3 (150-450); RBC Distribution Width CV 14.3 % (11.6-14.6); RBC Distribution Width SD 46.1 fl (35.1-43.9); Red Blood Count 4.38 M/mm3 (4.2-5.4); White Blood Count 5.2 K/mm3 (4.4-11.0)
[2024-06-24 17:47] LABS: Vitamin D,25 Hydroxy 30.2 ng/mL (30-100)
[2024-06-26 04:07] LABS: Thyroid Peroxidase AB 21 IU/mL (0-34)
== END | disposition home or self-care (01) ==
PROVIDERS: Referring Provider Nurse Practitioner Women's Health; Visit Provider Nurse Practitioner Women's Health
DX: Z13.29 Encounter for screening for other suspected endocrine disorder (principal); R53.83 Other fatigue
CPT/HCPCS: 36415; 82306; 84439; 84443; 85025; 86376